=== PATIENT | male | born 1960 | race Caucasian/White ===

== ENCOUNTER 2020-07-24 07:44 | Inpatient (IN) | payer OTHER ==
[~2020-07-24] VITALS: Ht 167.6 cm; Wt 83.9 kg
[~2020-07-24 07:44] MED LIST: LISINOPRIL2.5 MG
[2020-07-24 08:18] VITALS: Ht 167.6 cm; Wt 83.9 kg
[2020-07-24 11:50] LABS: CALCIUM 9.6 mg/dL (8.5-10.1); CARBON DIOXIDE 29.3 mmol/L (21-32); CHLORIDE SERUM 97 mmol/L (98-107); CREATININE SERUM 0.6 mg/dL (0.7-1.3); GFR1 > 60 mL/min; GLUCOSE SERUM 111 mg/dL (74-106); POTASSIUM SERUM 4.2 mmol/L (3.5-5.1); SODIUM SERUM 133 mmol/L (136-145)
[2020-07-24 12:00] LABS: BASOPHIL % 0.2 % (0.2-1.5); PLATELET COUNT 387 x10^3mcL (152-348); RED CELL DISTRIBUTION WIDTH 13.2 % (12.1-16.2)
[2020-07-24 14:56] LABS: rbc morphology (normal/abnorm) NORMAL (NORMAL)
[2020-07-25 07:10] LABS: BASOPHIL % 0.3 % (0.2-1.5); PLATELET COUNT 352 x10^3mcL (152-348); RED CELL DISTRIBUTION WIDTH 13.2 % (12.1-16.2)
[2020-07-25 07:15] LABS: CALCIUM 9.4 mg/dL (8.5-10.1); CARBON DIOXIDE 29.5 mmol/L (21-32); CREATININE SERUM 1.9 mg/dL (0.7-1.3); rbc morphology (normal/abnorm) NORMAL (NORMAL)
[2020-07-25] MEDS ORDERED: NORCO1 TA2 PO (22:03)
[2020-07-25] MEDS ORDERED: BACLOFEN1 POW (22:03)
[2020-07-25 22:53] VITALS: BP 102/74
[2020-07-25 23:07] VITALS: BP 119/72
[2020-07-25 23:41] VITALS: BP 102/74
[2020-07-25 23:42] VITALS: BP 102/74
[2020-07-25 23:44] VITALS: BP 102/74
[2020-07-26 05:25] VITALS: BP 103/63
[2020-07-26 08:18] LABS: BASOPHIL % 0.4 % (0.2-1.5); PLATELET COUNT 336 x10^3mcL (152-348); RED CELL DISTRIBUTION WIDTH 13.3 % (12.1-16.2)
[2020-07-26 08:34] LABS: CARBON DIOXIDE 27.2 mmol/L (21-32); CREATININE SERUM 2.3 mg/dL (0.7-1.3); POTASSIUM SERUM 4.2 mmol/L (3.5-5.1)
[2020-07-26 08:36] VITALS: BP 97/69
[2020-07-26 12:43] VITALS: BP 115/80
[2020-07-26 13:05] LABS: rbc morphology (normal/abnorm) ABNORMAL (NORMAL)
[2020-07-26 17:15] VITALS: BP 112/73
[2020-07-26 20:07] VITALS: BP 132/78
[2020-07-27 05:42] VITALS: BP 96/74
[2020-07-27 08:30] LABS: BASOPHIL % 0.4 % (0.2-1.5); PLATELET COUNT 368 x10^3mcL (152-348); RED CELL DISTRIBUTION WIDTH 13.2 % (12.1-16.2)
[2020-07-27 08:33] LABS: CALCIUM 9.5 mg/dL (8.5-10.1); CARBON DIOXIDE 29.9 mmol/L (21-32); CHLORIDE SERUM 95 mmol/L (98-107); CREATININE SERUM 0.8 mg/dL (0.7-1.3); GFR1 > 60 mL/min; GLUCOSE SERUM 106 mg/dL (74-106); POTASSIUM SERUM 4.2 mmol/L (3.5-5.1); SODIUM SERUM 131 mmol/L (136-145)
[2020-07-27 08:50] VITALS: BP 131/80
[2020-07-27 09:58] LABS: rbc morphology (normal/abnorm) NORMAL (NORMAL)
[2020-07-27 16:36] VITALS: BP 119/71
[2020-07-27 20:15] VITALS: BP 130/67
[2020-07-28 05:58] VITALS: BP 119/78
[2020-07-28 08:06] LABS: CALCIUM 9.1 mg/dL (8.5-10.1); CARBON DIOXIDE 29.8 mmol/L (21-32); CHLORIDE SERUM 98 mmol/L (98-107); CREATININE SERUM 0.6 mg/dL (0.7-1.3); GFR1 > 60 mL/min; GLUCOSE SERUM 93 mg/dL (74-106); POTASSIUM SERUM 3.6 mmol/L (3.5-5.1); SODIUM SERUM 135 mmol/L (136-145)
[2020-07-28 08:11] LABS: BASOPHIL % 0.4 % (0.2-1.5); PLATELET COUNT 339 x10^3mcL (152-348); RED CELL DISTRIBUTION WIDTH 12.7 % (12.1-16.2)
[2020-07-28 09:35] VITALS: BP 136/86
[2020-07-28 13:33] VITALS: BP 140/71
[2020-07-28 17:22] VITALS: BP 138/74
[2020-07-28 20:33] VITALS: BP 130/71
[2020-07-29 05:20] VITALS: BP 156/93
[2020-07-29 07:27] LABS: PLATELET COUNT 387 x10^3mcL (152-348); RED CELL DISTRIBUTION WIDTH 12.8 % (12.1-16.2)
[2020-07-29 08:00] LABS: BASOPHIL % 2.1 % (0.2-1.5)
[2020-07-29 08:09] LABS: CALCIUM 9.1 mg/dL (8.5-10.1); CHLORIDE SERUM 100 mmol/L (98-107); CREATININE SERUM 0.6 mg/dL (0.7-1.3); GFR1 > 60 mL/min; GLUCOSE SERUM 93 mg/dL (74-106); POTASSIUM SERUM 4.1 mmol/L (3.5-5.1); SODIUM SERUM 137 mmol/L (136-145)
[2020-07-29 08:46] VITALS: BP 127/79
[2020-07-29 12:28] VITALS: BP 142/91
[2020-07-29 17:17] VITALS: BP 104/84
[2020-07-29 20:21] VITALS: BP 142/91
[2020-07-30 05:18] VITALS: BP 138/90
[2020-07-30 08:41] VITALS: BP 134/84
[2020-07-30 12:21] VITALS: BP 125/82
[2020-07-30 17:05] VITALS: BP 130/79
[2020-07-30 21:47] VITALS: BP 145/84
[2020-07-31 05:22] VITALS: BP 148/90
[2020-07-31 08:00] VITALS: BP 141/98
[2020-07-31 13:02] VITALS: BP 137/77
[2020-07-31 17:09] VITALS: BP 128/87
[2020-07-31 21:30] VITALS: BP 126/66
[2020-08-01 06:19] VITALS: BP 126/84
[2020-08-01 13:10] VITALS: BP 128/77
[2020-08-01 15:13] VITALS: BP 136/79
== END 2020-08-01 16:06 | disposition home or self-care (01) | DRG 206 ==
LOC: ED 07:44 → DU 13:11
PROVIDERS: Emergency Medicine; ADMIT Internal Medicine; ATTEND Internal Medicine
DX: S22.32XA Fracture of one rib, left side, initial encounter for closed fracture (principal); J98.11 Atelectasis; Z20.822 Contact with and (suspected) exposure to COVID-19; I10 Essential (primary) hypertension; E78.5 Hyperlipidemia, unspecified; Z83.6 Family history of other diseases of the respiratory system; F10.20 Alcohol dependence, uncomplicated; Y90.9 Presence of alcohol in blood, level not specified; W18.39XA Other fall on same level, initial encounter; Y93.89 Activity, other specified; Y92.89 Other specified places as the place of occurrence of the external cause; Y99.8 Other external cause status
CPT/HCPCS: 82962; 97110-GP; 97116-GP; 97530-GP; G0378; J1170; J1644; J2270; J2405; J3010; J3490; J7030